=== PATIENT | male | born 1960 | race Caucasian/White ===

== ENCOUNTER 2018-03-29 12:21 | Emergency (ER) | payer BC, OTHER ==
[2018-03-29] MEDS ORDERED: Sodium Chloride 0.9% 2.5 ML Syringe FLUSH PRN (12:44)
[2018-03-29] MEDS ORDERED: Sodium Chloride 0.9% 10 ML Syringe FLUSH PRN (12:44)
[2018-03-29] MEDS ORDERED: Sodium Chloride 0.9% 1,000 ML IV ONE (12:45)
[2018-03-29] MEDS ORDERED: Acetaminophen 500 MG Tab PO ONE (12:45)
[2018-03-29] MEDS ORDERED: Ketorolac 30 MG/ML SDV IVPUSH ONE (12:45)
--- NOTE | 2018-03-29 12:47 | EDM.PDOC ---
ED HPI GENERAL MEDICAL PROBLEM - General Chief Complaint: Fever Stated Complaint: FEVER Time Seen by Provider: 03/29/18 12:39 - History of Present Illness INITIAL COMMENTS - FREE TEXT/NARRATIVE: HISTORY AND PHYSICAL: History of present illness: The patient is a 57-year-old male who follows with Dr. Tejas Hicks at [facility] and has a history of [id number] diabetes hypercholesterolemia for which he was taking medications but was stopped by his provider 21/2 months ago and was told that he did not need them and that he needed to be rechecked at 3 months--he has not done that checkup yet; patient presents today with sudden onset of fever this morning at about 10 AM. The patient states that his temp was 102 at home and he did not take any medications. He said that he felt chills body aches a little bit of phlegm but no gross cough and no pain with swallowing no runny nose and no sinus congestion. He denies headache neck pain or back pain but has diffuse body aches and weakness. He has no abdominal pain vomiting or diarrhea. Patient has had no urine output issues dysuria frequency or flank pain. States he is not around anybody that is ill but he does spend a lot of time outdoors and is exposed to mosquitoes. The patient denies any specific leg or arm pain and has not noticed any skin rashes. The patient says he does feel lightheaded but he has not passed out or blacked out area the patient does state that he has chronic lower extremity edema that is not new or different Review of systems: As per history of present illness and below otherwise all systems reviewed and negative. Past medical history: As per history of present illness and as reviewed below otherwise noncontributory. Surgical history: As per history of present illness and as reviewed below otherwise noncontributory. Social history: No reported history of drug or alcohol abuse. Family history: As per history of present illness and as reviewed below otherwise noncontributory. Physical exam: General: Well-developed well-nourished overweight man who is nontoxic and vital signs are noted by me. He moves easily in the ED without distress HEENT: Atraumatic, normocephalic, pupils reactive, negative for conjunctival pallor or scleral icterus, mucous membranes moist, throat clear, neck supple, nontender, trachea midline. There is no cervical adenopathy or nuchal rigidity Lungs: Clear to auscultation, breath sounds equal bilaterally, chest nontender. No wheezing stridor or work of breathing Heart: S1S2, regular rhythm and slightly tachycardic rate on my evaluation Abdomen: Soft, nondistended, nontender. Negative for masses or hepatosplenomegaly. Negative for costovertebral tenderness. Pelvis: Deferred Genitourinary: Deferred. Rectal: Deferred. Extremities: Atraumatic, negative for cords or calf pain. Neurovascular unremarkable. There is some brawny chronic edema of the lower extremities 1+ with no leg asymmetry Neuro: Awake, alert, oriented. Cranial nerves II through XII unremarkable. Cerebellum unremarkable. Motor and sensory unremarkable throughout. Exam nonfocal. Skin: Turgor is normal and there are no overt rashes or lesions Diagnostics: CBC CMP UA urine culture blood cultures rapid strep chest x-ray lactic acid Monospot West Nile virus EKG Therapeutics: IV fluids Tylenol Toradol All testing results were discussed with the patient and he is aware that he needs to follow-up with his provider in the clinic and he will be contacted with any positive culture results. I will advise symptomatic care at home and close follow-up Impression: Fever/viral illness Definitive disposition and diagnosis as appropriate pending reevaluation and review of above. - Related Data Allergies Allergy/AdvReac Type Severity Reaction Status Date / Time Penicillins Allergy Hives Verified 06/25/15 10:18 rosuvastatin calcium Allergy Chest Verified 06/25/15 10:18 [From Crestor] Tightness Sulfa (Sulfonamide Allergy Hives Verified 06/25/15 10:18 Antibiotics) Home Meds: Home Meds . [No Known Home Meds] 03/29/18 [History] Past Medical History Other HEENT History: Fusion of cervical spine "neck" Other Cardiovascular History: Reports "Losartan to protect kidneys due to Diabetes" Other Respiratory History: hx: Tobacco use (20 yrs), QUIT 12 yrs ago Other Gastrointestinal History: Incarcerated Ventral Hernia Endocrine/Metabolic History: Reports: Diabetes, Type II Other Dermatologic History: Rash to Left ankle, applying topical prescribed cream 'denies any open area" - Past Surgical History Other HEENT Surgeries/Procedures: Eye surgery when very young (42 yrs ago) Other Neurological Surgeries/Procedures: Fusion Cervical spine "C 5-6-7" Social & Family History - Family History Family Medical History: Noncontributory - Tobacco Use Smoking Status *Q: Former Smoker Used Tobacco, but Quit: Yes Month/Year Tobacco Last Used: 08/06/1999 - Caffeine Use Caffeine Use: Reports: None - Recreational Drug Use Recreational Drug Use: No ED ROS GENERAL - Review of Systems Review Of Systems: ROS reveals no pertinent complaints other than HPI. ED EXAM, GENERAL - Physical Exam Exam: See Below (See dictation) Course - Vital Signs Last Recorded V/S: Last Vital Signs Temp 38.1 C 03/29/18 14:04 Pulse 100 03/29/18 14:04 Resp 14 03/29/18 14:04 BP 104/61 03/29/18 14:04 Pulse Ox 94 L 03/29/18 14:04 - Orders/Labs/Meds Orders: Active Orders 24 hr Category Date Time Status Blood Glucose Check, Bedside [RC] ONETIME Care 03/29/18 12:44 Active EKG Documentation Completion [RC] STAT Care 03/29/18 12:44 Active Chest 2V [CR] Stat Exams 03/29/18 12:44 Taken CULTURE BLOOD [BC] Stat Lab 03/29/18 12:51 Received CULTURE BLOOD [BC] Stat Lab 03/29/18 13:09 Received CULTURE STREP A CONFIRMATION [RM] Stat Lab 03/29/18 12:57 Results CULTURE URINE [RM] Stat Lab 03/29/18 12:45 Received STREP SCRN A RAPID W CULT CONF [RM] Stat Lab 03/29/18 12:57 Ordered UA W/MICROSCOPIC [URIN] Stat Lab 03/29/18 12:45 Ordered [facility] [REF] Routine Lab 03/29/18 13:09 Received Sodium Chloride 0.9% [Saline Flush] Med 03/29/18 12:44 Active 10 ml FLUSH ASDIRECTED PRN Sodium Chloride 0.9% [Saline Flush] Med 03/29/18 12:44 Active 2.5 ml FLUSH ASDIRECTED PRN Blood Culture x2 Reflex Set [OM.PC] Stat Oth 03/29/18 12:44 Ordered Saline Lock Insert [OM.PC] Stat Oth 03/29/18 12:44 Ordered Medication Orders Sodium Chloride (Saline Flush) 10 ml FLUSH ASDIRECTED PRN PRN Reason: Keep Vein Open Sodium Chloride (Saline Flush) 2.5 ml FLUSH ASDIRECTED PRN PRN Reason: Keep Vein Open Labs: Laboratory Tests 03/29/18 03/29/18 03/29/18 Range/Units 12:45 12:48 12:51 WBC 14.90 H (4.0-11.0) K/uL RBC 5.06 (4.50-5.90) M/uL Hgb 14.3 (13.0-17.0) g/dL Hct 42.0 (38.0-50.0) % MCV 83.0 (80.0-98.0) fL MCH 28.3 (27.0-32.0) pg MCHC 34.0 (31.0-37.0) g/dL RDW Std Deviation 42.0 (28.0-62.0) fl RDW Coeff of Jessy 14 (11.0-15.0) % Plt Count 185 (150-400) K/uL MPV 9.60 (7.40-12.00) fL Neut % (Auto) 93.0 H (48.0-80.0) % Lymph % (Auto) 2.9 L (16.0-40.0) % Hartley % (Auto) 3.9 (0.0-15.0) % Eos % (Auto) 0.1 (0.0-7.0) % Baso % (Auto) 0.1 (0.0-1.5) % Neut # (Auto) 13.9 H (1.4-5.7) K/uL Lymph # (Auto) 0.4 L (0.6-2.4) K/uL Hartley # (Auto) 0.6 (0.0-0.8) K/uL Eos # (Auto) 0.0 (0.0-0.7) K/uL Baso # (Auto) 0.0 (0.0-0.1) K/uL Nucleated RBC % 0.0 /100WBC Nucleated RBCs # 0 K/uL Lactate (0.20-2.00) mmol/L Sodium (136-148) mmol/L Potassium (3.5-5.1) mmol/L Chloride (98-107) mmol/L Carbon Dioxide (21.0-32.0) mmol/L BUN (7.0-18.0) mg/dL Creatinine (0.8-1.3) mg/dL Est Cr Clr Drug Dosing mL/min Estimated GFR (MDRD) ml/min Glucose (74-106) mg/dL POC Glucose 139 H (60-110) mg/dL Calcium (8.5-10.1) mg/dL Total Bilirubin (0.2-1.0) mg/dL AST (15-37) IU/L ALT (14-63) IU/L Alkaline Phosphatase (46-116) U/L Total Protein (6.4-8.2) g/dL Albumin (3.4-5.0) g/dL Globulin (2.0-3.5) g/dL Albumin/Globulin Ratio (1.3-2.8) Urine Color YELLOW Urine Appearance CLEAR Urine pH 6.0 (5.0-8.0) Ur Specific Arthur 1.020 (1.001-1.035) Urine Protein NEGATIVE (NEGATIVE) mg/dL Urine Glucose (UA) NEGATIVE (NEGATIVE) mg/dL Urine Ketones NEGATIVE (NEGATIVE) mg/dL Urine Occult Blood TRACE-INTACT (NEGATIVE) Urine Nitrite NEGATIVE (NEGATIVE) Urine Bilirubin NEGATIVE (NEGATIVE) Urine Urobilinogen 0.2 (<2.0) EU/dL Ur Leukocyte Esterase NEGATIVE (NEGATIVE) Urine RBC 0-1 (0-2/HPF) Urine WBC 0-1 (0-5/HPF) Ur Epithelial Cells RARE (NONE-FEW) Urine Bacteria RARE (NEGATIVE) Monoscreen (NEG) 03/29/18 03/29/18 03/29/18 Range/Units 12:51 12:51 12:51 WBC (4.0-11.0) K/uL RBC (4.50-5.90) M/uL Hgb (13.0-17.0) g/dL Hct (38.0-50.0) % MCV (80.0-98.0) fL MCH (27.0-32.0) pg MCHC (31.0-37.0) g/dL RDW Std Deviation (28.0-62.0) fl RDW Coeff of Jessy (11.0-15.0) % Plt Count (150-400) K/uL MPV (7.40-12.00) fL Neut % (Auto) (48.0-80.0) % Lymph % (Auto) (16.0-40.0) % Hartley % (Auto) (0.0-15.0) % Eos % (Auto) (0.0-7.0) % Baso % (Auto) (0.0-1.5) % Neut # (Auto) (1.4-5.7) K/uL Lymph # (Auto) (0.6-2.4) K/uL Hartley # (Auto) (0.0-0.8) K/uL Eos # (Auto) (0.0-0.7) K/uL Baso # (Auto) (0.0-0.1) K/uL Nucleated RBC % /100WBC Nucleated RBCs # K/uL Lactate 1.4 (0.20-2.00) mmol/L Sodium 132 L (136-148) mmol/L Potassium 4.0 (3.5-5.1) mmol/L Chloride 98 (98-107) mmol/L Carbon Dioxide 25.6 (21.0-32.0) mmol/L BUN 16 (7.0-18.0) mg/dL Creatinine 1.3 (0.8-1.3) mg/dL Est Cr Clr Drug Dosing 70.47 mL/min Estimated GFR (MDRD) 57.3 ml/min Glucose 135 H (74-106) mg/dL POC Glucose (60-110) mg/dL Calcium 9.4 (8.5-10.1) mg/dL Total Bilirubin 1.3 H (0.2-1.0) mg/dL AST 17 (15-37) IU/L ALT 36 (14-63) IU/L Alkaline Phosphatase 78 (46-116) U/L Total Protein 7.9 (6.4-8.2) g/dL Albumin 4.0 (3.4-5.0) g/dL Globulin 3.9 H (2.0-3.5) g/dL Albumin/Globulin Ratio 1.0 L (1.3-2.8) Urine Color Urine Appearance Urine pH (5.0-8.0) Ur Specific Arthur (1.001-1.035) Urine Protein (NEGATIVE) mg/dL Urine Glucose (UA) (NEGATIVE) mg/dL Urine Ketones (NEGATIVE) mg/dL Urine Occult Blood (NEGATIVE) Urine Nitrite (NEGATIVE) Urine Bilirubin (NEGATIVE) Urine Urobilinogen (<2.0) EU/dL Ur Leukocyte Esterase (NEGATIVE) Urine RBC (0-2/HPF) Urine WBC (0-5/HPF) Ur Epithelial Cells (NONE-FEW) Urine Bacteria (NEGATIVE) Monoscreen NEGATIVE (NEG) Meds: Medications Generic Name Dose Route Start Last Admin Trade Name Freq PRN Reason Stop Dose Admin Sodium Chloride 10 ml 03/29/18 12:44 Saline Flush FLUSH ASDIRECTED PRN Keep Vein Open Sodium Chloride 2.5 ml 03/29/18 12:44 Saline Flush FLUSH ASDIRECTED PRN Keep Vein Open Discontinued Medications Generic Name Dose Route Start Last Admin Trade Name Freq PRN Reason Stop Dose Admin Acetaminophen 1,000 mg 03/29/18 12:45 03/29/18 13:02 Tylenol Extra Strength PO 03/29/18 12:46 1,000 mg ONETIME ONE Administration Sodium Chloride 1,000 mls @ 999 mls/hr 03/29/18 12:45 03/29/18 13:02 Normal Saline IV 03/29/18 13:45 999 mls/hr STAT ONE Administration Ketorolac Tromethamine 30 mg 03/29/18 12:45 03/29/18 13:03 Toradol IVPUSH 03/29/18 12:46 30 mg ONETIME ONE Administration Departure - Departure Time of Disposition: 14:13 Disposition: Home, Self-Care 01 Condition: Good Clinical Impression: Viral illness Fever Qualifiers: Fever type: unspecified Qualified Code(s): R50.9 - Fever, unspecified - Discharge Information Referrals: Tejas Larkin MD [Primary Care Provider] - Forms: ED Department Discharge Additional Instructions: The following information is given to patients seen in the emergency department who are being discharged to home. This information is to outline your options for follow-up care. We provide all patients seen in our emergency department with a follow-up referral. The need for follow-up, as well as the timing and circumstances, are variable depending upon the specifics of your emergency department visit. If you don't have a primary care physician on staff, we will provide you with a referral. We always advise you to contact your personal physician following an emergency department visit to inform them of the circumstance of the visit and for follow-up with them and/or the need for any referrals to a consulting specialist. The emergency department will also refer you to a specialist when appropriate. This referral assures that you have the opportunity for followup care with a specialist. All of these measure are taken in an effort to provide you with optimal care, which includes your followup. Under all circumstances we always encourage you to contact your private physician who remains a resource for coordinating your care. When calling for followup care, please make the office aware that this follow-up is from your recent emergency room visit. If for any reason you are refused follow-up, please contact the [facility] emergency department at and ask to speak to the emergency department charge nurse. [address] [place] [address] Please contact your provider Dr. Larkin in the clinic and schedule a follow-up appointment. Please push hydration such as water Gatorade and juices and avoid caffeinated products. Please use Tylenol 650 mg to 1000 mg every 6 hours for fevers and add ibuprofen/Motrin 800 mg every 6-8 hours for fever and bodyaches. Rest as much as possible and return to ER as needed and as discussed. This will likely run its course over the next several days to one week. - My Orders Last 24 Hours: My Active Orders 03/29/18 12:44 Blood Glucose Check, Bedside [RC] ONETIME EKG Documentation Completion [RC] STAT Chest 2V [CR] Stat Sodium Chloride 0.9% [Saline Flush] 10 ml FLUSH ASDIRECTED PRN Sodium Chloride 0.9% [Saline Flush] 2.5 ml FLUSH ASDIRECTED PRN Blood Culture x2 Reflex Set [OM.PC] Stat Saline Lock Insert [OM.PC] Stat 03/29/18 12:45 CULTURE URINE [] Stat UA W/MICROSCOPIC [URIN] Stat 03/29/18 12:51 CULTURE BLOOD [BC] Stat 03/29/18 12:57 CULTURE STREP A CONFIRMATION [RM] Stat STREP SCRN A RAPID W CULT CONF [RM] Stat 03/29/18 13:09 CULTURE BLOOD [BC] Stat [facility] [REF] Routine - Assessment/Plan Last 24 Hours: My Active Orders 03/29/18 12:44 Blood Glucose Check, Bedside [RC] ONETIME EKG Documentation Completion [RC] STAT Chest 2V [CR] Stat Sodium Chloride 0.9% [Saline Flush] 10 ml FLUSH ASDIRECTED PRN Sodium Chloride 0.9% [Saline Flush] 2.5 ml FLUSH ASDIRECTED PRN Blood Culture x2 Reflex Set [OM.PC] Stat Saline Lock Insert [OM.PC] Stat 03/29/18 12:45 CULTURE URINE [RM] Stat UA W/MICROSCOPIC [URIN] Stat 03/29/18 12:51 CULTURE BLOOD [BC] Stat 03/29/18 12:57 CULTURE STREP A CONFIRMATION [RM] Stat STREP SCRN A RAPID W CULT CONF [RM] Stat 03/29/18 13:09 CULTURE BLOOD [BC] Stat [facility] [REF] Routine
[2018-03-29 14:18] VITALS: BP 99/59
--- NOTE | 2018-03-29 21:56 | CR ---
EXAM DATE: 03/29/18 PATIENT'S AGE: 57 Patient: JANELLE ELLIOTT Facility: [place], [place] Site . Site : [id number] Study: XRay Chest [id number]/[id number] 1:29:07 PM Ordering Physician: Sayra Gannon Final Report: INDICATION: Chest pain; shortness of breath. COMPARISON: None. TECHNIQUE: Two-view chest. FINDINGS: Normal size cardiac silhouette. Clear lung nolan without evidence of acute pulmonic infiltrates or CHF. No pneumothorax or pleural effusion. Postop changes lower cervical spine . Impression: Negative chest. Dictated by Declan Garza MD @ Mar 29 2018 1:47PM (Electronic Signature) Report Signed by Proxy. KARAN
== END 2018-03-29 14:20 | disposition home or self-care (01) ==
LOC: MW.ED 12:21
DX: B34.9 Viral infection, unspecified (principal); E11.9 Type 2 diabetes mellitus without complications; Z87.891 Personal history of nicotine dependence; Z88.0 Allergy status to penicillin; Z88.2 Allergy status to sulfonamides; Z88.8 Allergy status to other drugs, medicaments and biological substances
CPT/HCPCS: 36415; 71046; 80053; 81001; 82962; 83605; 85025; 86308; 87040; 87081; 87086; 87880; 93005; 96361; 96374; 99284; A9270; J1885; J7040

== ENCOUNTER 2018-04-08 13:02 | Inpatient (IN) | payer BC, OTHER ==
[2018-04-08] MEDS ORDERED: Sodium Chloride 0.9% 10 ML Syringe FLUSH PRN (13:19)
[2018-04-08] MEDS ORDERED: Sodium Chloride 0.9% 2.5 ML Syringe FLUSH PRN (13:19)
[2018-04-08] MEDS ORDERED: Sodium Chloride 0.9% 1,000 ML IV ONE (13:20)
--- NOTE | 2018-04-08 13:24 | EDM.PDOC ---
ED HPI GENERAL MEDICAL PROBLEM - General Chief Complaint: Lower Extremity Injury/Pain Stated Complaint: LT FOOT HAS INFECTION Time Seen by Provider: 04/08/18 13:16 - History of Present Illness INITIAL COMMENTS - FREE TEXT/NARRATIVE: HISTORY AND PHYSICAL: History of present illness: Patient's a 57-year-old white male with history of diabetes was being treated as an outpatient for cellulitis he has had his second course of antibiotics with no improvement he was seen on March 29 for fever. He's had no vomiting no diarrhea no other complaints he did follow-up with his private doctor who said that he does not have any improvement with this oral antibiotics that he does need inpatient Review of systems: As per history of present illness and below otherwise all systems reviewed and negative. Past medical history: As per history of present illness and as reviewed below otherwise noncontributory. Surgical history: As per history of present illness and as reviewed below otherwise noncontributory. Social history: No reported history of drug or alcohol abuse. Family history: As per history of present illness and as reviewed below otherwise noncontributory. Physical exam: HEENT: Atraumatic, normocephalic, pupils reactive, negative for conjunctival pallor or scleral icterus, mucous membranes moist, throat clear, neck supple, nontender, trachea midline. Lungs: Clear to auscultation, breath sounds equal bilaterally, chest nontender. Heart: S1S2, regular, negative for clicks, rubs, or JVD. Abdomen: Soft, nondistended, nontender. Negative for masses or hepatosplenomegaly. Negative for costovertebral tenderness. Pelvis: Stable nontender. Genitourinary: Deferred. Rectal: Deferred. Extremities: Patient's left leg has several areas of excoriation and venous stasis changes along with erythema warmth and tenderness neurovascular exam is unremarkable Neuro: Awake, alert, oriented. Cranial nerves II through XII unremarkable. Cerebellum unremarkable. Motor and sensory unremarkable throughout. Exam nonfocal. Diagnostics: CBC CMP blood cultures 2 lactic acid x-ray left tib-fib Therapeutics: Saline 1 L bolus by Comycin 1 g IV Impression: #1 cellulitis left lower extremity #2 history of diabetes Definitive disposition and diagnosis as appropriate pending reevaluation and review of above. - Related Data Allergies Allergy/AdvReac Type Severity Reaction Status Date / Time Penicillins Allergy Hives Verified 06/25/15 10:18 rosuvastatin calcium Allergy Chest Verified 06/25/15 10:18 [From Crestor] Tightness Sulfa (Sulfonamide Allergy Hives Verified 06/25/15 10:18 Antibiotics) Home Meds: Home Meds . [No Known Home Meds] 03/29/18 [History] Past Medical History Other HEENT History: Fusion of cervical spine "neck" Other Cardiovascular History: Reports "Losartan to protect kidneys due to Diabetes" Other Respiratory History: hx: Tobacco use (20 yrs), QUIT 12 yrs ago Other Gastrointestinal History: Incarcerated Ventral Hernia Endocrine/Metabolic History: Reports: Diabetes, Type II Other Dermatologic History: Rash to Left ankle, applying topical prescribed cream 'denies any open area" - Past Surgical History Other HEENT Surgeries/Procedures: Eye surgery when very young (40 yrs ago) Other Neurological Surgeries/Procedures: Fusion Cervical spine "C 5-6-7" Social & Family History - Family History Family Medical History: Noncontributory - Caffeine Use Caffeine Use: Reports: None Review of Systems - Review of Systems Review Of Systems: ROS reveals no pertinent complaints other than HPI. ED EXAM, GENERAL - Physical Exam Exam: See Below (See dictation) Course - Orders/Labs/Meds Orders: Active Orders 24 hr Category Date Time Status Tibia Fibula Lt [CR] Stat Exams 04/08/18 13:19 Ordered CBC WITH AUTO DIFF [HEME] Stat Lab 04/08/18 13:19 Ordered COMPREHENSIVE METABOLIC PN,CMP [CHEM] Stat Lab 04/08/18 13:19 Ordered CULTURE BLOOD [BC] Stat Lab 04/08/18 13:20 Ordered CULTURE BLOOD [BC] Stat Lab 04/08/18 13:20 Ordered LACTATE WITH REFLEX [BG] Stat Lab 04/08/18 13:20 Ordered Sodium Chloride 0.9% [Normal Saline] 1,000 ml Med 04/08/18 13:20 Ordered IV STAT Sodium Chloride 0.9% [Saline Flush] Med 04/08/18 13:19 Ordered 10 ml FLUSH ASDIRECTED PRN Sodium Chloride 0.9% [Saline Flush] Med 04/08/18 13:19 Ordered 2.5 ml FLUSH ASDIRECTED PRN Vancomycin [Vancocin] 1 gm Med 04/08/18 13:20 Ordered Sodium Chloride 0.9% [Normal Saline] 250 ml IV ONETIME Blood Culture x2 Reflex Set [OM.PC] Stat Oth 04/08/18 13:19 Ordered Saline Lock Insert [OM.PC] Stat Oth 04/08/18 13:19 Ordered Departure - Departure Time of Disposition: 13:23 Disposition: Admitted As Inpatient 68 Condition: Good Clinical Impression: Cellulitis, Diabetes, History of West Nile virus infection - Discharge Information *PRESCRIPTION DRUG MONITORING PROGRAM REVIEWED*: Not Applicable *COPY OF PRESCRIPTION DRUG MONITORING REPORT IN PATIENT ELICEO: Not Applicable Referrals: PCP,None [Primary Care Provider] - - My Orders Last 24 Hours: My Active Orders 04/08/18 13:19 Tibia Fibula Lt [CR] Stat CBC WITH AUTO DIFF [HEME] Stat COMPREHENSIVE METABOLIC PN,CMP [CHEM] Stat Sodium Chloride 0.9% [Saline Flush] 10 ml FLUSH ASDIRECTED PRN Sodium Chloride 0.9% [Saline Flush] 2.5 ml FLUSH ASDIRECTED PRN Blood Culture x2 Reflex Set [OM.PC] Stat Saline Lock Insert [OM.PC] Stat 04/08/18 13:20 CULTURE BLOOD [BC] Stat CULTURE BLOOD [BC] Stat LACTATE WITH REFLEX [BG] Stat Sodium Chloride 0.9% [Normal Saline] 1,000 ml IV STAT Vancomycin [Vancocin] 1 gm Sodium Chloride 0.9% [Normal Saline] 250 ml IV ONETIME - Assessment/Plan Last 24 Hours: My Active Orders 04/08/18 13:19 Tibia Fibula Lt [CR] Stat CBC WITH AUTO DIFF [HEME] Stat COMPREHENSIVE METABOLIC PN,CMP [CHEM] Stat Sodium Chloride 0.9% [Saline Flush] 10 ml FLUSH ASDIRECTED PRN Sodium Chloride 0.9% [Saline Flush] 2.5 ml FLUSH ASDIRECTED PRN Blood Culture x2 Reflex Set [OM.PC] Stat Saline Lock Insert [OM.PC] Stat 04/08/18 13:20 CULTURE BLOOD [BC] Stat CULTURE BLOOD [BC] Stat LACTATE WITH REFLEX [BG] Stat Sodium Chloride 0.9% [Normal Saline] 1,000 ml IV STAT Vancomycin [Vancocin] 1 gm Sodium Chloride 0.9% [Normal Saline] 250 ml IV ONETIME
[2018-04-08 14:30] LABS: CHLORIDE,CL 101 mmol/L (98-107); SODIUM,NA 137 mmol/L (136-148)
[2018-04-08] MEDS: Insulin Aspart 100 Units/ML 3 ML Pen SUBCUT SCH (17:53)
[2018-04-08] MEDS ORDERED: Ibuprofen 400 MG Tab PO PRN (22:06)
[2018-04-08] MEDS ORDERED: Acetaminophen 325 MG Tab PO PRN (22:06)
[2018-04-08] MEDS ORDERED: Ondansetron 4 MG/2 ML SDV IVPUSH PRN (22:06)
--- NOTE | 2018-04-08 22:20 | PCM.HP ---
H&P History of Present Illness - General Date of Service: 04/08/18 Admit Problem/Dx: Admission Diagnosis/Problem Admission Diagnosis/Problem Cellulitis - History of Present Illness Initial Comments - Free Text/Narative: 57 yo male who presents to the ED with one week history of left leg rash. He reported edema and erythema of the left leg. He was treated with keflex and clindamycin by Dr. Larkin with no improvement. 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 His diabetic medications were discontinued three months ago due to low blood sugars. He has intentionally lost weight this year. He has history of chronic bilateral leg edema for which he uses teresita wraps. - Related Data Allergies/Adverse Reactions: Allergies Allergy/AdvReac Type Severity Reaction Status Date / Time Penicillins Allergy Hives Verified 04/08/18 14:34 rosuvastatin calcium Allergy Chest Verified 04/08/18 14:34 [From Crestor] Tightness Sulfa (Sulfonamide Allergy Hives Verified 04/08/18 14:34 Antibiotics) Home Medications: Home Meds Clindamycin HCl 300 mg PO Q6HR 04/08/18 [History] Past Medical History Other HEENT History: Fusion of cervical spine "neck" Cardiovascular History: Reports: None Other Cardiovascular History: Reports "Losartan to protect kidneys due to Diabetes" Other Respiratory History: hx: Tobacco use (20 yrs), QUIT 12 yrs ago Other Gastrointestinal History: Incarcerated Ventral Hernia Endocrine/Metabolic History: Reports: Diabetes, Type II Other Dermatologic History: Rash to Left ankle, applying topical prescribed cream 'denies any open area" - Infectious Disease History Infectious Disease History: Reports: Chicken Pox, Measles - Past Surgical History Other HEENT Surgeries/Procedures: Eye surgery when very young (42 yrs ago) Cardiovascular Surgical History: Reports: None Other Neurological Surgeries/Procedures: Fusion Cervical spine "C 5-6-7" Social & Family History - Family History Family Medical History: Noncontributory - Tobacco Use Smoking Status *Q: Former Smoker Years of Tobacco use: 20 Packs/Tins Daily: 1 Used Tobacco, but Quit: Yes Month/Year Tobacco Last Used: 1999 Tobacco Use Comment: Quit smokinh 18 years ago Second Hand Smoke Exposure: No - Caffeine Use Caffeine Use: Reports: Coffee - Recreational Drug Use Recreational Drug Use: No H&P Review of Systems - Review of Systems: Review Of Systems: RADHA reveals no pertinent complaints other than HPI. Exam - Exam Exam: See Below - Vital Signs Vital Signs: Last Vital Signs Temp 36.2 C 04/08/18 20:00 Pulse 67 04/08/18 20:00 Resp 20 04/08/18 20:00 BP 158/77 H 04/08/18 20:00 Pulse Ox 97 04/08/18 20:00 Weight: 126.053 kg - Exam General: Alert, Oriented HEENT: Mucosa Moist & [place] Lungs: Clear to Auscultation, Normal Respiratory Effort Cardiovascular: Regular Rate, Regular Rhythm GI/Abdominal Exam: Normal Bowel Sounds, Soft, Non-Tender Extremities: Other (right leg has large patches of erythema of left leg extending from ankle to below knee, no area of induration, or drainage. ) - Patient Data Lab Results Last 24 hrs: Laboratory Results - last 24 hr 04/08/18 04/08/18 04/08/18 Range/Units 13:36 13:36 13:36 WBC 8.47 (4.0-11.0) K/uL RBC 5.06 (4.50-5.90) M/uL Hgb 14.3 (13.0-17.0) g/dL Hct 42.4 (38.0-50.0) % MCV 83.8 (80.0-98.0) fL MCH 28.3 (27.0-32.0) pg MCHC 33.7 (31.0-37.0) g/dL RDW Std Deviation 42.6 (28.0-62.0) fl RDW Coeff of Jessy 14 (11.0-15.0) % Plt Count 366 (150-400) K/uL MPV 9.30 (7.40-12.00) fL Neut % (Auto) 65.3 (48.0-80.0) % Lymph % (Auto) 24.2 (16.0-40.0) % [place] % (Auto) 8.1 (0.0-15.0) % Eos % (Auto) 2.2 (0.0-7.0) % Baso % (Auto) 0.2 (0.0-1.5) % Neut # (Auto) 5.5 (1.4-5.7) K/uL Lymph # (Auto) 2.1 (0.6-2.4) K/uL [place] # (Auto) 0.7 (0.0-0.8) K/uL Eos # (Auto) 0.2 (0.0-0.7) K/uL Baso # (Auto) 0.0 (0.0-0.1) K/uL Nucleated RBC % 0.0 /100WBC Nucleated RBCs # 0 K/uL Lactate 1.1 (0.20-2.00) mmol/L Sodium 137 (136-148) mmol/L Potassium 4.3 (3.5-5.1) mmol/L Chloride 101 (98-107) mmol/L Carbon Dioxide 27.7 (21.0-32.0) mmol/L BUN 14 (7.0-18.0) mg/dL Creatinine 1.1 (0.8-1.3) mg/dL Est Cr Clr Drug Dosing TNP Estimated GFR (MDRD) > 60.0 ml/min Glucose 100 (74-106) mg/dL POC Glucose (60-110) mg/dL Calcium 9.1 (8.5-10.1) mg/dL Total Bilirubin 0.6 (0.2-1.0) mg/dL AST 13 L (15-37) IU/L ALT 53 (14-63) IU/L Alkaline Phosphatase 83 (46-116) U/L Total Protein 8.2 (6.4-8.2) g/dL Albumin 3.4 (3.4-5.0) g/dL Globulin 4.8 H (2.0-3.5) g/dL Albumin/Globulin Ratio 0.7 L (1.3-2.8) 04/08/18 Range/Units 17:28 WBC (4.0-11.0) K/uL RBC (4.50-5.90) M/uL Hgb (13.0-17.0) g/dL Hct (38.0-50.0) % MCV (80.0-98.0) fL MCH (27.0-32.0) pg MCHC (31.0-37.0) g/dL RDW Std Deviation (28.0-62.0) fl RDW Coeff of Ejssy (11.0-15.0) % Plt Count (150-400) K/uL MPV (7.40-12.00) fL Neut % (Auto) (48.0-80.0) % Lymph % (Auto) (16.0-40.0) % [place] % (Auto) (0.0-15.0) % Eos % (Auto) (0.0-7.0) % Baso % (Auto) (0.0-1.5) % Neut # (Auto) (1.4-5.7) K/uL Lymph # (Auto) (0.6-2.4) K/uL [place] # (Auto) (0.0-0.8) K/uL Eos # (Auto) (0.0-0.7) K/uL Baso # (Auto) (0.0-0.1) K/uL Nucleated RBC % /100WBC Nucleated RBCs # K/uL Lactate (0.20-2.00) mmol/L Sodium (136-148) mmol/L Potassium (3.5-5.1) mmol/L Chloride (98-107) mmol/L Carbon Dioxide (21.0-32.0) mmol/L BUN (7.0-18.0) mg/dL Creatinine (0.8-1.3) mg/dL Est Cr Clr Drug Dosing Estimated GFR (MDRD) ml/min Glucose (74-106) mg/dL POC Glucose 71 (60-110) mg/dL Calcium (8.5-10.1) mg/dL Total Bilirubin (0.2-1.0) mg/dL AST (15-37) IU/L ALT (14-63) IU/L Alkaline Phosphatase (46-116) U/L Total Protein (6.4-8.2) g/dL Albumin (3.4-5.0) g/dL Globulin (2.0-3.5) g/dL Albumin/Globulin Ratio (1.3-2.8) Result Diagrams: 04/08/18 13:36 04/08/18 13:36 Problem List Initiated/Reviewed/Updated: Yes Orders Last 24hrs: Active Orders 24 hr Category Date Time Status Patient Status [ADT] Stat ADT 04/08/18 14:28 Active Blood Glucose Check, Bedside [RC] TIDAC Care 04/08/18 17:30 Active Oxygen Therapy [RC] PRN Care 04/08/18 22:06 Ordered Up ad Marsha [RC] ASDIRECTED Care 04/08/18 22:06 Ordered VTE/DVT Education [RC] PER UNIT ROUTINE Care 04/08/18 22:06 Ordered Vital Signs [RC] Q4H Care 04/08/18 22:06 Ordered ADA Diabetic [[place] [employer] Diet] [DIET Diet 04/08/18 Dinner Active ] Tibia Fibula Lt [CR] Stat Exams 04/08/18 13:19 Taken Venous Doppler Lwr Ext Lt [US] Routine Exams 04/08/18 22:05 Ordered BMP [BASIC METABOLIC PANEL,BMP] [CHEM] Routine Lab 04/09/18 05:00 Ordered CBC WITH AUTO DIFF [HEME] Routine Lab 04/09/18 05:00 Ordered CULTURE BLOOD [BC] Stat Lab 04/08/18 13:36 Received CULTURE BLOOD [BC] Stat Lab 04/08/18 13:36 Received VANCOMYCIN TROUGH [CHEM] Routine Lab 04/10/18 08:30 Ordered Acetaminophen [Tylenol] Med 04/08/18 22:06 Ordered 650 mg PO Q4H PRN Enoxaparin [Lovenox] Med 04/08/18 22:15 Ordered 40 mg SUBCUT Q24H Ibuprofen [Motrin] Med 04/08/18 22:06 Ordered 400 mg PO Q6H PRN Insulin Aspart [NovoLOG] Med 04/08/18 17:00 Active See Protocol SUBCUT TIDAC Ondansetron [Zofran] Med 04/08/18 22:06 Ordered 4 mg IVPUSH Q4H PRN Sodium Chloride 0.9% [Saline Flush] Med 04/08/18 13:19 Active 10 ml FLUSH ASDIRECTED PRN Sodium Chloride 0.9% [Saline Flush] Med 04/08/18 13:19 Active 2.5 ml FLUSH ASDIRECTED PRN Vancomycin 2,000 mg Med 04/08/18 21:00 Active Sodium Chloride 0.9% [Normal Saline] 500 ml IV Q12H Vancomycin Pharmacy to Dose [Pharmacy to Dose - Med 04/08/18 16:00 Active Vancomycin] 1 dose .XX ASDIRECTED Blood Culture x2 Reflex Set [OM.PC] Stat Oth 04/08/18 13:19 Ordered Saline Lock Insert [OM.PC] Stat Oth 04/08/18 13:19 Ordered Sequential Compression Device [OM.PC] Per Unit Routine Oth 04/08/18 22:07 Ordered Resuscitation Status Routine Resus Stat 04/08/18 22:06 Ordered Medication Orders Acetaminophen (Tylenol) 650 mg PO Q4H PRN PRN Reason: Pain (Mild 1-3)/fever Enoxaparin Sodium (Lovenox) 40 mg SUBCUT Q24H MAGGIE Vancomycin HCl 2,000 mg/ (Sodium Chloride) 500 mls @ 250 mls/hr IV Q12H MAGGIE Last Admin: 04/08/18 21:27 Dose: 250 mls/hr Ibuprofen (Motrin) 400 mg PO Q6H PRN PRN Reason: Pain (mild 1-3) Insulin Aspart (Novolog) 0 unit SUBCUT TIDAC MAGGIE; Protocol Last Admin: 04/08/18 17:53 Dose: Not Given Ondansetron HCl (Zofran) 4 mg IVPUSH Q4H PRN PRN Reason: Nausea Sodium Chloride (Saline Flush) 10 ml FLUSH ASDIRECTED PRN PRN Reason: Keep Vein Open Sodium Chloride (Saline Flush) 2.5 ml FLUSH ASDIRECTED PRN PRN Reason: Keep Vein Open Vancomycin HCl (Pharmacy To Dose - Vancomycin) 1 dose .XX ASDIRECTED [facility] Assessment/Plan Comment:: 57 yo male admitted for cellulitis that failed outpatient management. We will treat with vancomycin.
[2018-04-08] MEDS: Enoxaparin 40 MG/0.4 ML Syringe SUBCUT SCH (22:45)
[2018-04-09 05:38] LABS: CHLORIDE,CL 102 mmol/L (98-107); SODIUM,NA 137 mmol/L (136-148)
[2018-04-09] MEDS: Insulin Aspart 100 Units/ML 3 ML Pen SUBCUT SCH ×3 (07:00→18:00)
--- NOTE | 2018-04-09 09:22 | US ---
ULTRASOUND EXAMINATION OF the left lower extremity WITH DOPPLER HISTORY: Edema FINDINGS: Examination of the left leg was performed from the groin to the calf region. All visualized segments including common femoral, proximal greater saphenous, superficial femoral, popliteal and calf veins appear patent with good compressibility and augmentation. There is no evidence of deep vein thrombos is. IMPRESSION: No evidence of a DVT.
--- NOTE | 2018-04-09 09:34 | CR ---
EXAM DATE: 04/08/18 PATIENT'S AGE: 57 Patient: JANELLE ELLIOTT Facility: [place], [place] Site . Site : [id number] Study: XRay Extremity Left tib/fib [id number]/3/2018 2:16:34 PM Ordering Physician: Andrews Sneed Final Report: INDICATION: Leg pain TECHNIQUE: Tibia-fibula radiograph two views on 4 films left COMPARISON: None FINDINGS: Bone: No acute fractures or aggressive bone lesions are identified. Joint: The visualized knee and ankle joints are unremarkable. No significant joint effusion is seen. Soft tissue: Moderate diffuse subcutaneous edema is present. Small soft tissue calcifications are seen in anterior etienne. No radiopaque foreign bodies are seen. IMPRESSION: 1. No acute osseous injuries or abnormalities are noted. Dictated by Shalom Green MD @ 04/08/2018 2:24:08 PM Dictated by: Shalom Green MD @ 04/08/2018 14:24:11 (Electronic Signature) Report Signed by Proxy. KARAN
--- NOTE | 2018-04-09 11:13 | PCM.PN ---
- General Info Date of Service: 04/09/18 Admission Dx/Problem (Free Text): Patient is stable, sitting his edema of his cellulitis is improving, he is, denies any diarrhea constipation or any other concerns this point in time. - Patient Data Vitals - Most Recent: Last Vital Signs Temp 36.7 C 04/09/18 07:29 Pulse 64 04/09/18 04:00 Resp 15 04/09/18 07:29 BP 134/80 04/09/18 07:29 Pulse Ox 98 04/09/18 04:00 Weight - Most Recent: 126.053 kg I&O - Last 24 Hours: Intake & Output 04/08/18 04/09/18 04/09/18 22:59 06:59 14:59 Intake Total 1250 1661 500 Output Total 1425 Balance 1250 236 500 Lab Results Last 24 Hours: Laboratory Results - last 24 hr 04/08/18 04/08/18 04/08/18 Range/Units 13:36 13:36 13:36 WBC 8.47 (4.0-11.0) K/uL RBC 5.06 (4.50-5.90) M/uL Hgb 14.3 (13.0-17.0) g/dL Hct 42.4 (38.0-50.0) % MCV 83.8 (80.0-98.0) fL MCH 28.3 (27.0-32.0) pg MCHC 33.7 (31.0-37.0) g/dL RDW Std Deviation 42.6 (28.0-62.0) fl RDW Coeff of Jessy 14 (11.0-15.0) % Plt Count 366 (150-400) K/uL MPV 9.30 (7.40-12.00) fL Neut % (Auto) 65.3 (48.0-80.0) % Lymph % (Auto) 24.2 (16.0-40.0) % [place] % (Auto) 8.1 (0.0-15.0) % Eos % (Auto) 2.2 (0.0-7.0) % Baso % (Auto) 0.2 (0.0-1.5) % Neut # (Auto) 5.5 (1.4-5.7) K/uL Lymph # (Auto) 2.1 (0.6-2.4) K/uL [place] # (Auto) 0.7 (0.0-0.8) K/uL Eos # (Auto) 0.2 (0.0-0.7) K/uL Baso # (Auto) 0.0 (0.0-0.1) K/uL Nucleated RBC % 0.0 /100WBC Nucleated RBCs # 0 K/uL Lactate 1.1 (0.20-2.00) mmol/L Sodium 137 (136-148) mmol/L Potassium 4.3 (3.5-5.1) mmol/L Chloride 101 (98-107) mmol/L Carbon Dioxide 27.7 (21.0-32.0) mmol/L BUN 14 (7.0-18.0) mg/dL Creatinine 1.1 (0.8-1.3) mg/dL Est Cr Clr Drug Dosing TNP Estimated GFR (MDRD) > 60.0 ml/min Glucose 100 (74-106) mg/dL POC Glucose (60-110) mg/dL Calcium 9.1 (8.5-10.1) mg/dL Total Bilirubin 0.6 (0.2-1.0) mg/dL AST 13 L (15-37) IU/L ALT 53 (14-63) IU/L Alkaline Phosphatase 83 (46-116) U/L Total Protein 8.2 (6.4-8.2) g/dL Albumin 3.4 (3.4-5.0) g/dL Globulin 4.8 H (2.0-3.5) g/dL Albumin/Globulin Ratio 0.7 L (1.3-2.8) 04/08/18 04/09/18 04/09/18 Range/Units 17:28 05:00 05:00 WBC 7.88 (4.0-11.0) K/uL RBC 4.67 (4.50-5.90) M/uL Hgb 13.0 (13.0-17.0) g/dL Hct 39.6 (38.0-50.0) % MCV 84.8 (80.0-98.0) fL MCH 27.8 (27.0-32.0) pg MCHC 32.8 (31.0-37.0) g/dL RDW Std Deviation 43.0 (28.0-62.0) fl RDW Coeff of Jessy 14 (11.0-15.0) % Plt Count 325 (150-400) K/uL MPV 9.30 (7.40-12.00) fL Neut % (Auto) 56.3 (48.0-80.0) % Lymph % (Auto) 31.2 (16.0-40.0) % [place] % (Auto) 8.5 (0.0-15.0) % Eos % (Auto) 3.7 (0.0-7.0) % Baso % (Auto) 0.3 (0.0-1.5) % Neut # (Auto) 4.4 (1.4-5.7) K/uL Lymph # (Auto) 2.5 H (0.6-2.4) K/uL [place] # (Auto) 0.7 (0.0-0.8) K/uL Eos # (Auto) 0.3 (0.0-0.7) K/uL Baso # (Auto) 0.0 (0.0-0.1) K/uL Nucleated RBC % 0.0 /100WBC Nucleated RBCs # 0 K/uL Lactate (0.20-2.00) mmol/L Sodium 137 (136-148) mmol/L Potassium 4.7 (3.5-5.1) mmol/L Chloride 102 (98-107) mmol/L Carbon Dioxide 29.7 (21.0-32.0) mmol/L BUN 13 (7.0-18.0) mg/dL Creatinine 1.1 (0.8-1.3) mg/dL Est Cr Clr Drug Dosing 83.28 Estimated GFR (MDRD) > 60.0 ml/min Glucose 118 H (74-106) mg/dL POC Glucose 71 (60-110) mg/dL Calcium 8.7 (8.5-10.1) mg/dL Total Bilirubin (0.2-1.0) mg/dL AST (15-37) IU/L ALT (14-63) IU/L Alkaline Phosphatase (46-116) U/L Total Protein (6.4-8.2) g/dL Albumin (3.4-5.0) g/dL Globulin (2.0-3.5) g/dL Albumin/Globulin Ratio (1.3-2.8) 04/09/18 Range/Units 06:54 WBC (4.0-11.0) K/uL RBC (4.50-5.90) M/uL Hgb (13.0-17.0) g/dL Hct (38.0-50.0) % MCV (80.0-98.0) fL MCH (27.0-32.0) pg MCHC (31.0-37.0) g/dL RDW Std Deviation (28.0-62.0) fl RDW Coeff of Jessy (11.0-15.0) % Plt Count (150-400) K/uL MPV (7.40-12.00) fL Neut % (Auto) (48.0-80.0) % Lymph % (Auto) (16.0-40.0) % [place] % (Auto) (0.0-15.0) % Eos % (Auto) (0.0-7.0) % Baso % (Auto) (0.0-1.5) % Neut # (Auto) (1.4-5.7) K/uL Lymph # (Auto) (0.6-2.4) K/uL [place] # (Auto) (0.0-0.8) K/uL Eos # (Auto) (0.0-0.7) K/uL Baso # (Auto) (0.0-0.1) K/uL Nucleated RBC % /100WBC Nucleated RBCs # K/uL Lactate (0.20-2.00) mmol/L Sodium (136-148) mmol/L Potassium (3.5-5.1) mmol/L Chloride (98-107) mmol/L Carbon Dioxide (21.0-32.0) mmol/L BUN (7.0-18.0) mg/dL Creatinine (0.8-1.3) mg/dL Est Cr Clr Drug Dosing Estimated GFR (MDRD) ml/min Glucose (74-106) mg/dL POC Glucose 110 (60-110) mg/dL Calcium (8.5-10.1) mg/dL Total Bilirubin (0.2-1.0) mg/dL AST (15-37) IU/L ALT (14-63) IU/L Alkaline Phosphatase (46-116) U/L Total Protein (6.4-8.2) g/dL Albumin (3.4-5.0) g/dL Globulin (2.0-3.5) g/dL Albumin/Globulin Ratio (1.3-2.8) Med Orders - Current: Current Medications Acetaminophen (Tylenol) 650 mg PO Q4H PRN PRN Reason: Pain (Mild 1-3)/fever Last Admin: 04/09/18 06:59 Dose: 650 mg Enoxaparin Sodium (Lovenox) 40 mg SUBCUT Q24H MAGGIE Last Admin: 04/08/18 22:45 Dose: 40 mg Vancomycin HCl 2,000 mg/ (Sodium Chloride) 500 mls @ 250 mls/hr IV Q12H MAGGIE Last Admin: 04/09/18 08:13 Dose: 250 mls/hr Ibuprofen (Motrin) 400 mg PO Q6H PRN PRN Reason: Pain (mild 1-3) Insulin Aspart (Novolog) 0 unit SUBCUT TIDAC [facility]; Protocol Last Admin: 04/09/18 07:00 Dose: Not Given Ondansetron HCl (Zofran) 4 mg IVPUSH Q4H PRN PRN Reason: Nausea Sodium Chloride (Saline Flush) 10 ml FLUSH ASDIRECTED PRN PRN Reason: Keep Vein Open Sodium Chloride (Saline Flush) 2.5 ml FLUSH ASDIRECTED PRN PRN Reason: Keep Vein Open Vancomycin HCl (Pharmacy To Dose - Vancomycin) 1 dose .XX ASDIRECTED MAGGIE Discontinued Medications Sodium Chloride (Normal Saline) 1,000 mls @ 999 mls/hr IV STAT ONE Stop: 04/08/18 14:20 Last Admin: 04/08/18 13:45 Dose: 999 mls/hr Vancomycin HCl 1 gm/ Sodium (Chloride) 250 mls @ 250 mls/hr IV ONETIME ONE Stop: 04/08/18 14:19 Last Admin: 04/08/18 14:15 Dose: 250 mls/hr - Exam General: Alert, Oriented, Cooperative Lungs: Clear to Auscultation, Normal Respiratory Effort Cardiovascular: Regular Rate, Regular Rhythm Extremities: Joint Swelling, Leg Pain, Redness, Other (Patient's cellulitis is improving from yesterday) - Problem List Review Problem List Initiated/Reviewed/Updated: Yes - Plan Plan:: 57 yo male admitted for cellulitis that failed outpatient management. - Continue with IV vancomycin patient will stay for possible 1-2 more nights due to failure of his outpatient treatment of his cellulitis. -Patient is stable and does not appear to be worsening in terms of his clinical condition -
[2018-04-09] MEDS: Enoxaparin 40 MG/0.4 ML Syringe SUBCUT SCH (22:00)
[2018-04-10 05:58] LABS: CHLORIDE,CL 101 mmol/L (98-107); SODIUM,NA 136 mmol/L (136-148)
[2018-04-10] MEDS: Insulin Aspart 100 Units/ML 3 ML Pen SUBCUT SCH ×2 (07:42→12:07)
--- NOTE | 2018-04-10 10:48 | PCM.DCSUM1 ---
Discharge Summary - Hospital Course Diagnosis: Stroke: No - Discharge Data Discharge Disposition: Home, Self-Care 01 Condition: Good - Patient Instructions Diet: Regular Diet as Tolerated Activity: As Tolerated Driving: Do Not Drive Showering/Bathing: May Shower Wound/Incision Care: Keep Operative Site/Wound Site Clean and Dry Notify Provider of: Fever, Increased Pain, Swelling and Redness, Drainage - Discharge Plan *PRESCRIPTION DRUG MONITORING PROGRAM REVIEWED*: Not Applicable *COPY OF PRESCRIPTION DRUG MONITORING REPORT IN PATIENT ELICEO: Not Applicable Prescriptions/Med Rec: Doxycycline [Vibramycin] 100 mg PO BID 10 Days #20 tab Home Medications: Home Meds Doxycycline [Vibramycin] 100 mg PO BID 10 Days #20 tab 04/10/18 [Rx] Forms: Return to Work/Inpatient [facility], ED Department Discharge Referrals: PCP,None [Primary Care Provider] - Tejas Larkin MD [Physician] - - Patient Data Vitals - Most Recent: Last Vital Signs Temp 36.1 C 04/10/18 08:00 Pulse 64 04/10/18 08:00 Resp 17 04/10/18 08:00 BP 136/78 04/10/18 08:00 Pulse Ox 97 04/10/18 08:00 Weight - Most Recent: 126.053 kg I&O - Last 24 hours: Intake & Output 04/09/18 04/10/18 04/10/18 22:59 06:59 14:59 Intake Total 1286 900 Output Total 1600 800 Balance -314 100 Lab Results - Last 24 hrs: Laboratory Results - last 24 hr 04/09/18 04/09/18 04/10/18 Range/Units 11:07 17:44 04:58 WBC 7.21 (4.0-11.0) K/uL RBC 4.81 (4.50-5.90) M/uL Hgb 13.4 (13.0-17.0) g/dL Hct 40.5 (38.0-50.0) % MCV 84.2 (80.0-98.0) fL MCH 27.9 (27.0-32.0) pg MCHC 33.1 (31.0-37.0) g/dL RDW Std Deviation 41.8 (28.0-62.0) fl RDW Coeff of Jessy 14 (11.0-15.0) % Plt Count 324 (150-400) K/uL MPV 9.30 (7.40-12.00) fL Neut % (Auto) 55.7 (48.0-80.0) % Lymph % (Auto) 30.9 (16.0-40.0) % [place] % (Auto) 9.3 (0.0-15.0) % Eos % (Auto) 3.7 (0.0-7.0) % Baso % (Auto) 0.4 (0.0-1.5) % Neut # (Auto) 4.0 (1.4-5.7) K/uL Lymph # (Auto) 2.2 (0.6-2.4) K/uL [place] # (Auto) 0.7 (0.0-0.8) K/uL Eos # (Auto) 0.3 (0.0-0.7) K/uL Baso # (Auto) 0.0 (0.0-0.1) K/uL Nucleated RBC % 0.0 /100WBC Nucleated RBCs # 0 K/uL Sodium (136-148) mmol/L Potassium (3.5-5.1) mmol/L Chloride (98-107) mmol/L Carbon Dioxide (21.0-32.0) mmol/L BUN (7.0-18.0) mg/dL Creatinine (0.8-1.3) mg/dL Est Cr Clr Drug Dosing mL/min Estimated GFR (MDRD) ml/min Glucose (74-106) mg/dL POC Glucose 101 116 H (60-110) mg/dL Calcium (8.5-10.1) mg/dL Vancomycin Trough (5.0-10.0) ug/mL 04/10/18 04/10/18 04/10/18 Range/Units 04:58 08:34 08:51 WBC (4.0-11.0) K/uL RBC (4.50-5.90) M/uL Hgb (13.0-17.0) g/dL Hct (38.0-50.0) % MCV (80.0-98.0) fL MCH (27.0-32.0) pg MCHC (31.0-37.0) g/dL RDW Std Deviation (28.0-62.0) fl RDW Coeff of Jessy (11.0-15.0) % Plt Count (150-400) K/uL MPV (7.40-12.00) fL Neut % (Auto) (48.0-80.0) % Lymph % (Auto) (16.0-40.0) % [place] % (Auto) (0.0-15.0) % Eos % (Auto) (0.0-7.0) % Baso % (Auto) (0.0-1.5) % Neut # (Auto) (1.4-5.7) K/uL Lymph # (Auto) (0.6-2.4) K/uL [place] # (Auto) (0.0-0.8) K/uL Eos # (Auto) (0.0-0.7) K/uL Baso # (Auto) (0.0-0.1) K/uL Nucleated RBC % /100WBC Nucleated RBCs # K/uL Sodium 136 (136-148) mmol/L Potassium 4.1 (3.5-5.1) mmol/L Chloride 101 (98-107) mmol/L Carbon Dioxide 28.7 (21.0-32.0) mmol/L BUN 17 (7.0-18.0) mg/dL Creatinine 1.1 (0.8-1.3) mg/dL Est Cr Clr Drug Dosing 83.28 mL/min Estimated GFR (MDRD) > 60.0 ml/min Glucose 115 H (74-106) mg/dL POC Glucose 138 H (60-110) mg/dL Calcium 8.9 (8.5-10.1) mg/dL Vancomycin Trough 17.5 H (5.0-10.0) ug/mL BEATRIS Results - Last 24 hrs: Microbiology 04/08/18 13:36 Aerobic Blood Culture - Preliminary Blood - Venous - Lab Draw NO GROWTH AFTER 1 DAY Anaerobic Blood Culture - Preliminary NO GROWTH AFTER 1 DAY 04/08/18 13:36 Aerobic Blood Culture - Preliminary Blood - Venous NO GROWTH AFTER 1 DAY Anaerobic Blood Culture - Preliminary NO GROWTH AFTER 1 DAY Med Orders - Current: Current Medications Acetaminophen (Tylenol) 650 mg PO Q4H PRN PRN Reason: Pain (Mild 1-3)/fever Last Admin: 04/09/18 06:59 Dose: 650 mg Enoxaparin Sodium (Lovenox) 40 mg SUBCUT Q24H MAGGIE Last Admin: 04/09/18 22:00 Dose: 40 mg Vancomycin HCl 2,000 mg/ (Sodium Chloride) 500 mls @ 250 mls/hr IV Q12H MAGGIE Last Admin: 04/09/18 20:31 Dose: 250 mls/hr Ibuprofen (Motrin) 400 mg PO Q6H PRN PRN Reason: Pain (mild 1-3) Insulin Aspart (Novolog) 0 unit SUBCUT TIDAC MAGGIE; Protocol Last Admin: 04/10/18 07:42 Dose: Not Given Ondansetron HCl (Zofran) 4 mg IVPUSH Q4H PRN PRN Reason: Nausea Sodium Chloride (Saline Flush) 10 ml FLUSH ASDIRECTED PRN PRN Reason: Keep Vein Open Sodium Chloride (Saline Flush) 2.5 ml FLUSH ASDIRECTED PRN PRN Reason: Keep Vein Open Vancomycin HCl (Pharmacy To Dose - Vancomycin) 1 dose .XX ASDIRECTED MAGGIE Discontinued Medications Sodium Chloride (Normal Saline) 1,000 mls @ 999 mls/hr IV STAT ONE Stop: 04/08/18 14:20 Last Admin: 04/08/18 13:45 Dose: 999 mls/hr Vancomycin HCl 1 gm/ Sodium (Chloride) 250 mls @ 250 mls/hr IV ONETIME ONE Stop: 04/08/18 14:19 Last Admin: 04/08/18 14:15 Dose: 250 mls/hr
[2018-04-10 12:51] VITALS: BP 126/75
== END 2018-04-10 13:41 | disposition home or self-care (01) | DRG 383 ==
LOC: MW.ED 13:02 → MW.MS 15:43
PROVIDERS: ADMIT Internal Medicine; ATTEND Internal Medicine
DX: L03.116 Cellulitis of left lower limb (principal); E11.9 Type 2 diabetes mellitus without complications; R60.0 Localized edema; Z88.2 Allergy status to sulfonamides; Z88.0 Allergy status to penicillin; Z88.8 Allergy status to other drugs, medicaments and biological substances; Z79.2 Long term (current) use of antibiotics; Z87.891 Personal history of nicotine dependence
CPT/HCPCS: 36415; 73590-26-LT; 73590-LT; 80048; 80053; 80202; 82962; 83605; 85025; 87040; 93971-26-LT; 93971-LT; 96365; 99284-25; A9270-GY; J1650; J3370; J7040; J7050

== ENCOUNTER 2021-11-02 17:48 | Emergency (ER) | payer BC ==
[2021-11-02 21:25] VITALS: PULSE 65
[2021-11-02 22:12] LABS: BLOOD UREA NITROGEN,BUN 18 mg/dL (7.0-18.0); CARBON DIOXIDE,CO2 25.8 mmol/L (21.0-32.0); CHLORIDE,CL 101 mmol/L (98-107); GLUCOSE RANDOM 96 mg/dL (74-106); POTASSIUM,K 3.9 mmol/L (3.5-5.1); SODIUM,NA 135 mmol/L (136-148)
[2021-11-02] MEDS ORDERED: Iopamidol 755 MG/ML 500 ML Multipack Bottle IVPUSH STA (22:41)
[2021-11-03 00:11] VITALS: BP 118/79
== END 2021-11-02 23:11 | disposition home or self-care (01) ==
LOC: MW.ED 17:48
DX: R51.9 Headache, unspecified (principal); E11.9 Type 2 diabetes mellitus without complications; Z88.0 Allergy status to penicillin; Z88.2 Allergy status to sulfonamides; Z88.8 Allergy status to other drugs, medicaments and biological substances
CPT/HCPCS: 36415; 70450; 70496; 70498; 71045; 80053; 82375; 84484; 85025; 85652; 93005; 99284; Q9967; 93010